=== PATIENT | female | born 1985 | race Caucasian/White ===

== ENCOUNTER 2018-11-16 13:58 | Emergency (ER) | payer OTHER ==
[~2018-11-16] VITALS: Ht 177.8 cm; Wt 111.1 kg
== END 2018-11-16 20:27 | disposition home or self-care (01) ==
LOC: EDBD 13:58 → ER 13:58
DX: O20.0 Threatened abortion (principal)

== ENCOUNTER 2018-12-03 06:32 | Emergency (ER) | payer OTHER ==
[~2018-12-03] VITALS: Ht 177.8 cm; Wt 108.9 kg
== END 2018-12-03 11:17 | disposition home or self-care (01) ==
LOC: ER 06:32
DX: N83.292 Other ovarian cyst, left side (principal)

== ENCOUNTER 2019-05-04 09:01 | Emergency (ER) | payer OTHER ==
[~2019-05-04] VITALS: Ht 177.8 cm; Wt 111.1 kg
[2019-05-04] MEDS ORDERED: VITATRUE COMBO1 EACH (09:21)
== END 2019-05-04 12:49 | disposition home or self-care (01) ==
LOC: ER 09:01
DX: O20.0 Threatened abortion (principal)

== ENCOUNTER 2019-12-05 19:47 | Inpatient (IN) | payer OTHER ==
[~2019-12-05] VITALS: Ht 177.8 cm; Wt 120.7 kg
[~2019-12-05 19:47] MED LIST: VITATRUE COMBO1 EACH
[2019-12-05] MEDS ORDERED: CHILDREN'S ASPI81 MG PO (22:22)
== END 2019-12-09 13:24 | disposition home or self-care (01) | DRG 788 ==
LOC: OBS/DEL 19:47 → OB/GYN 12-06 08:52 → LDR 12-06 08:52 → O/R 12-06 13:31 → OB/GYN 12-06 15:28
PROVIDERS: ADMIT Obstetrics & Gynecology
PROC: 4A1HXCZ Monitoring of Products of Conception, Cardiac Rate, External Approach (ICD-10-PCS; 2019-12-06)
PROC: 10D00Z1 Extraction of Products of Conception, Low, Open Approach (ICD-10-PCS; principal; 2019-12-06 11:00)
DX: O82 Encounter for cesarean delivery without indication (principal); O14.04 Mild to moderate pre-eclampsia, complicating childbirth; Z3A.39 39 weeks gestation of pregnancy; Z37.0 Single live birth

== ENCOUNTER 2021-05-07 07:52 | Inpatient (IN) | payer OTHER ==
[~2021-05-07] VITALS: Ht 177.8 cm; Wt 3.2 kg
[~2021-05-07 07:52] MED LIST changes: +CHILDREN'S ASPI81 MG PO
[2021-05-07] MEDS ORDERED: PRENATAL TABLE1 EAC1 PO (09:12)
[2021-05-07] MEDS ORDERED: LO-DOSE ASPIRIN81 M1 PO (09:13)
== END 2021-05-10 15:55 | disposition home or self-care (01) | DRG 785 ==
LOC: OB/GYN 07:52 → LDR 07:52 → OB/GYN 19:42
PROVIDERS: ADMIT Obstetrics & Gynecology; ATTEND Obstetrics & Gynecology
PROC: 0UB70ZZ Excision of Bilateral Fallopian Tubes, Open Approach (ICD-10-PCS; 2021-05-07)
PROC: 4A1HXFZ Monitoring of Products of Conception, Cardiac Rhythm, External Approach (ICD-10-PCS; 2021-05-07)
PROC: 10D00Z1 Extraction of Products of Conception, Low, Open Approach (ICD-10-PCS; principal; 2021-05-07 16:30)
DX: O34.211 Maternal care for low transverse scar from previous cesarean delivery (principal); O99.824 Streptococcus B carrier state complicating childbirth; Z30.2 Encounter for sterilization; Z3A.39 39 weeks gestation of pregnancy; Z37.0 Single live birth